=== PATIENT | female | born 2000 | race Caucasian/White ===

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

== ENCOUNTER 2021-02-05 10:48 | Emergency (ER) | payer MEDICAID ==
[2021-04-19] MEDS ORDERED: SULF1TAB48 PO (14:03)
== END 2021-02-05 11:30 | disposition left against medical advice (07) ==
LOC: ER 10:48
DX: N39.0 Urinary tract infection, site not specified (principal); Z53.21 Procedure and treatment not carried out due to patient leaving prior to being seen by health care provider

== ENCOUNTER 2022-06-23 10:39 | Emergency (ER) | payer MEDICAID ==
[~2022-06-23] VITALS: Ht 167.6 cm; Wt 60.8 kg
[2022-06-23 10:42] VITALS: BP 115/76
[2022-06-23] MEDS ORDERED: ketorolac tromethamine 15mg/ml inj. IM ONE (10:55)
[2022-06-23] MEDS ORDERED: CYCL-1 PO (11:55)
== END 2022-06-23 12:06 | disposition home or self-care (01) ==
LOC: ER 10:40
DX: S39.012A Strain of muscle, fascia and tendon of lower back, initial encounter (principal); Z88.5 Allergy status to narcotic agent; X58.XXXA Exposure to other specified factors, initial encounter; Y93.89 Activity, other specified; Y92.89 Other specified places as the place of occurrence of the external cause; Y99.8 Other external cause status
CPT/HCPCS: 72100; 96372; 99283; J1885

== ENCOUNTER 2022-09-05 21:19 | Emergency (ER) | payer MEDICAID ==
[~2022-09-05] VITALS: Ht 165.1 cm; Wt 60.7 kg
[~2022-09-05 21:19] MED LIST changes: +CYCL-1 PO
[2022-09-05 22:16] VITALS: BP 123/85; PULSE 72; TEMP 97.9; O2SAT 99
[2022-09-06] MEDS ORDERED: acetaminophen 325mg tablet PO ONE (01:15)
[2022-09-06] MEDS ORDERED: ketorolac trometh inj. 60 MG/2 ML VIAL IM ONE (01:15)
[2022-09-06 01:25] VITALS: RESP 18
== END 2022-09-06 01:28 | disposition home or self-care (01) ==
LOC: ER 21:20
DX: M54.50 Low back pain, unspecified (principal); Z88.8 Allergy status to other drugs, medicaments and biological substances; Z79.899 Other long term (current) drug therapy; W01.0XXA Fall on same level from slipping, tripping and stumbling without subsequent striking against object, initial encounter; Y93.89 Activity, other specified; Y92.89 Other specified places as the place of occurrence of the external cause; Y99.8 Other external cause status
CPT/HCPCS: 96372; 99283; J1885

== ENCOUNTER 2022-10-15 19:44 | Emergency (ER) | payer MEDICAID ==
[~2022-10-15] VITALS: Ht 167.6 cm; Wt 61.6 kg
[2022-10-15 19:53] VITALS: BP 147/89; PULSE 101; TEMP 98.6; O2SAT 100
[2022-10-15 20:22] LABS: BASOPHILS % (AUTO) 0.6 % (0-1); EOSINOPHILS # (AUTO) 0.1 X10'3 (0-0.9); HEMATOCRIT 46.9 % (35.0-45.0); HEMOGLOBIN 15.9 g/dl (12.0-16.0); LYMPHOCYTES # (AUTO) 2.5 X10'3 (1.1-4.8); LYMPHOCYTES % (AUTO) 38.9 % (21-51); MEAN CORPUSCULAR HEMOGLOBIN 30.9 PG (27.0-31.0); MEAN CORPUSCULAR HGB CONC 33.9 g/dL (33.0-36.5); MEAN CORPUSCULAR VOLUME 91.2 FL (78-98); MEAN PLATELET VOLUME 7.7 FL (7.4-10.4); MONOCYTES # (AUTO) 0.8 X10'3 (0-0.9); NEUTROPHILS # (AUTO) 3.1 X10'3 (1.8-7.7); NEUTROPHILS % (AUTO) 47.5 % (42-75); PLATELET COUNT 233 X10'3 (140-440); RED BLOOD COUNT 5.14 X10'6 (4.20-5.60); RED CELL DISTRIBUTION WIDTH 13.7 % (11.5-14.5); WHITE BLOOD COUNT 6.4 X10'3 (4.5-11.0)
[2022-10-15 20:25] LABS: URINE HCG NEGATIVE (NEG)
[2022-10-15 20:27] LABS: BILIRUBIN,URINE NEGATIVE (Neg); CLARITY,URINE SLIGHTLY CLOUDY (Clear); GLUCOSE, URINE NEGATIVE (Neg); KETONES,URINE NEGATIVE (Neg); LEUKOCYTE ESTERASE ,URINE MODERATE (Neg); NITRITES, URINE NEGATIVE (Neg); OCCULT BLOOD,URINE MODERATE (Neg); PH,URINE 5.5 (4.8-8.0); PROTEIN,URINE NEGATIVE (Neg); UROBILINOGEN,URINE 0.2 E.U/dL (0.2-1.0)
[2022-10-15 20:31] LABS: UA COLLECTION TYPE CLN CATCH MIDSTREAM
[2022-10-15 20:33] LABS: COLOR,URINE YELLOW (Yellow)
[2022-10-15 20:34] LABS: BACTERIA,URINE 1+ /HPF (Neg); SQUAMOUS EPITHELIAL CELL,UR MODERATE /LPF (FEW); WBC,URINE 20-30 /HPF (0-4)
[2022-10-15 20:35] LABS: MUCUS STRANDS FEW /LPF (Neg); TRANSITIONAL EPI CELLS,URINE FEW /HPF; WBC CLUMPS,URINE FEW /HPF (NEGATIVE)
[2022-10-15 20:36] LABS: ALANINE AMINOTRANSFERASE 11 U/L (12-78); ALBUMIN 3.9 G/DL (3.4-5.0); ALBUMIN/GLOBULIN RATIO 1.3 (1.1-1.5); ALKALINE PHOSPHATASE 62 IU/L (46-116); ANION GAP 11 (8-16); ASPARTATE AMINO TRANSFERASE 18 U/L (10-37); BILIRUBIN,TOTAL 0.6 MG/DL (0.1-1.0); BLOOD UREA NITROGEN 14 MG/DL (7-18); BUN/CREATININE RATIO 15.6 (10.0-20.0); CALCIUM 9.1 MG/DL (8.5-10.1); CHLORIDE 103 MMOL/L (99-107); GLUCOSE 92 MG/DL (70-104); LIPASE 81 U/L (73-393); POTASSIUM 3.9 MMOL/L (3.5-5.1); SODIUM 137 MMOL/L (135-145); TOTAL CARBON DIOXIDE 22.9 MMOL/L (24-32); eCRCL 93 ML/MIN; eGFR 79 ML/MIN
[2022-10-15 20:55] VITALS: RESP 16
[2022-10-15] MEDS ORDERED: CEFD300C3 PO (22:02)
[2022-10-15] MEDS ORDERED: CefTRIAXone 1000mg IM Kit (w/lidocaine diluent) IM ONE (22:05)
== END 2022-10-15 22:15 | disposition home or self-care (01) ==
LOC: ER 19:45
DX: N39.0 Urinary tract infection, site not specified (principal); Z88.8 Allergy status to other drugs, medicaments and biological substances; Z79.899 Other long term (current) drug therapy
CPT/HCPCS: 36415; 80053; 81001; 81025; 83690; 85025; 87088; 96372; 99283; J0696

== ENCOUNTER 2022-10-28 14:23 | Emergency (ER) | payer MEDICAID ==
[~2022-10-28] VITALS: Ht 167.6 cm; Wt 61.4 kg
[~2022-10-28 14:23] MED LIST changes: +CEFD300C3 PO
[2022-10-28 14:26] VITALS: BP 115/90; PULSE 116; TEMP 98.5; O2SAT 99
[2022-10-28 15:04] LABS: BASOPHILS % (AUTO) 0.2 % (0-1); EOSINOPHILS % (AUTO) 0.1 % (0-6); HEMATOCRIT 48.8 % (35.0-45.0); HEMOGLOBIN 16.8 g/dl (12.0-16.0); LYMPHOCYTES # (AUTO) 2.5 X10'3 (1.1-4.8); LYMPHOCYTES % (AUTO) 25.1 % (21-51); MEAN CORPUSCULAR HEMOGLOBIN 30.8 PG (27.0-31.0); MEAN CORPUSCULAR HGB CONC 34.5 g/dL (33.0-36.5); MEAN CORPUSCULAR VOLUME 89.2 FL (78-98); MEAN PLATELET VOLUME 8.1 FL (7.4-10.4); MONOCYTES # (AUTO) 0.9 X10'3 (0-0.9); MONOCYTES % (AUTO) 9.2 % (2-12); NEUTROPHILS # (AUTO) 6.4 X10'3 (1.8-7.7); NEUTROPHILS % (AUTO) 65.4 % (42-75); PLATELET COUNT 324 X10'3 (140-440); RED BLOOD COUNT 5.47 X10'6 (4.20-5.60); WHITE BLOOD COUNT 9.9 X10'3 (4.5-11.0)
[2022-10-28 15:16] LABS: ALANINE AMINOTRANSFERASE 22 U/L (12-78); ALBUMIN 4.6 G/DL (3.4-5.0); ALBUMIN/GLOBULIN RATIO 1.3 (1.1-1.5); ALKALINE PHOSPHATASE 61 IU/L (46-116); ANION GAP 18 (8-16); ASPARTATE AMINO TRANSFERASE 24 U/L (10-37); BILIRUBIN,TOTAL 0.8 MG/DL (0.1-1.0); BLOOD UREA NITROGEN 12 MG/DL (7-18); BUN/CREATININE RATIO 12.1 (10.0-20.0); CALCIUM 10.7 MG/DL (8.5-10.1); CHLORIDE 104 MMOL/L (99-107); CREATININE 0.99 MG/DL (0.40-0.90); GLUCOSE 99 MG/DL (70-104); POTASSIUM 3.7 MMOL/L (3.5-5.1); SODIUM 141 MMOL/L (135-145); TOTAL CARBON DIOXIDE 19.1 MMOL/L (24-32); TOTAL PROTEIN 8.2 G/DL (6.4-8.2); eCRCL 84 ML/MIN; eGFR 71 ML/MIN
[2022-10-28 16:05] VITALS: RESP 16
[2022-10-28] MEDS ORDERED: HYDR-3686 PO (16:08)
--- NOTE | 2022-10-28 16:26 | NUR ---
PT POSITIVE FOR COVID LAST WEEK. LAST SATURDAY, COVID TEST WAS NEGATIVE. ON ANTIBOTICS FOR UTI.
== END 2022-10-28 16:58 | disposition home or self-care (01) ==
LOC: ER 14:23
DX: F41.9 Anxiety disorder, unspecified (principal); J45.909 Unspecified asthma, uncomplicated; Z88.8 Allergy status to other drugs, medicaments and biological substances; Z79.899 Other long term (current) drug therapy; Z86.16 Personal history of COVID-19
CPT/HCPCS: 36415; 80053; 85025; 99283

== ENCOUNTER 2023-02-08 12:25 | Emergency (ER) | payer MEDICAID ==
[~2023-02-08] VITALS: Ht 167.6 cm; Wt 59.1 kg
[2023-02-08] MEDS ORDERED: albuterol 2.5 MG/3 ML nebule NEB ONE (13:10)
[2023-02-08 13:21] VITALS: PULSE 92; RESP 22; O2SAT 98
[2023-02-08 13:33] VITALS: PULSE 92; RESP 16; O2SAT 99
[2023-02-08] MEDS ORDERED: clopidogrel 300mg tablet ONE (13:36)
[2023-02-08] MEDS ORDERED: ALBU18HF2 INH (14:00)
[2023-02-08] MEDS ORDERED: BUDE10.2 INH (14:00)
[2023-02-08] MEDS ORDERED: PRED20TA PO (14:00)
[2023-02-08 14:20] VITALS: BP 120/69; PULSE 90; RESP 18; TEMP 98.3; O2SAT 97
== END 2023-02-08 14:23 | disposition home or self-care (01) ==
LOC: ER 12:26
DX: J45.909 Unspecified asthma, uncomplicated (principal); Z20.822 Contact with and (suspected) exposure to COVID-19; F41.9 Anxiety disorder, unspecified; F31.9 Bipolar disorder, unspecified; Z88.5 Allergy status to narcotic agent; Z79.899 Other long term (current) drug therapy
CPT/HCPCS: 36415; 71045; 87502; 87503; 87811; 94640; 94760; 99284

== ENCOUNTER 2023-02-09 10:40 | Emergency (ER) | payer MEDICAID ==
[~2023-02-09] VITALS: Ht 167.6 cm; Wt 59.1 kg
[~2023-02-09 10:40] MED LIST changes: +ALBU18HF2 INH; +BUDE10.2 INH; +PRED20TA PO
[2023-02-09 12:21] LABS: BILIRUBIN,URINE NEGATIVE (Neg); CLARITY,URINE CLOUDY (Clear); COLOR,URINE YELLOW (Yellow); GLUCOSE, URINE NEGATIVE (Neg); KETONES,URINE TRACE mg/dl (Neg); LEUKOCYTE ESTERASE ,URINE NEGATIVE (Neg); NITRITES, URINE NEGATIVE (Neg); OCCULT BLOOD,URINE MODERATE (Neg); PROTEIN,URINE TRACE mg/dl (Neg); UROBILINOGEN,URINE 0.2 E.U/dL (0.2-1.0)
[2023-02-09 12:27] LABS: UA COLLECTION TYPE CLN CATCH MIDSTREAM
[2023-02-09 12:30] LABS: BACTERIA,URINE 1+ /HPF (Neg); MUCUS STRANDS MODERATE /LPF (Neg); SQUAMOUS EPITHELIAL CELL,UR MANY /LPF (FEW); WBC,URINE 0-4 /HPF (0-4)
[2023-02-09 13:33] LABS: URINE HCG NEGATIVE (NEG)
[2023-02-09 13:58] VITALS: BP 108/74; PULSE 68; RESP 16; TEMP 98.5; O2SAT 96
[2023-02-12 14:36] LABS: CHLAMYDIA TRACHOMATIS, NAA Negative (Negative)
== END 2023-02-09 14:07 | disposition home or self-care (01) ==
LOC: ER 10:42
DX: R30.0 Dysuria (principal); F31.9 Bipolar disorder, unspecified; J45.909 Unspecified asthma, uncomplicated; Z88.5 Allergy status to narcotic agent; Z79.899 Other long term (current) drug therapy
CPT/HCPCS: 36415; 81001; 81025; 86592; 87210; 87491; 87591; 99284; Q0112

== ENCOUNTER 2023-04-19 19:21 | Emergency (ER) | payer MEDICAID, OTHER ==
[~2023-04-19] VITALS: Ht 167.6 cm; Wt 63.0 kg
[~2023-04-19 19:21] MED LIST changes: -PRED20TA PO
[2023-04-19 20:19] LABS: BILIRUBIN,URINE NEGATIVE (Neg); CLARITY,URINE CLEAR (Clear); COLOR,URINE YELLOW (Yellow); GLUCOSE, URINE NEGATIVE (Neg); KETONES,URINE NEGATIVE (Neg); LEUKOCYTE ESTERASE ,URINE NEGATIVE (Neg); NITRITES, URINE NEGATIVE (Neg); OCCULT BLOOD,URINE TRACE-INTACT (Neg); PROTEIN,URINE NEGATIVE (Neg); URINE HCG NEGATIVE (NEG); UROBILINOGEN,URINE 0.2 E.U/dL (0.2-1.0)
[2023-04-19 20:21] LABS: BASOPHILS % (AUTO) 0.3 % (0-1); EOSINOPHILS # (AUTO) 0.1 X10'3 (0-0.9); EOSINOPHILS % (AUTO) 0.7 % (0-6); HEMATOCRIT 41.2 % (35.0-45.0); HEMOGLOBIN 14.2 g/dl (12.0-16.0); LYMPHOCYTES # (AUTO) 2.3 X10'3 (1.1-4.8); LYMPHOCYTES % (AUTO) 27.4 % (21-51); MEAN CORPUSCULAR HEMOGLOBIN 30.9 PG (27.0-31.0); MEAN CORPUSCULAR HGB CONC 34.5 g/dL (33.0-36.5); MEAN CORPUSCULAR VOLUME 89.4 FL (78-98); MEAN PLATELET VOLUME 8.2 FL (7.4-10.4); MONOCYTES # (AUTO) 0.8 X10'3 (0-0.9); MONOCYTES % (AUTO) 9.7 % (2-12); NEUTROPHILS # (AUTO) 5.1 X10'3 (1.8-7.7); NEUTROPHILS % (AUTO) 61.9 % (42-75); PLATELET COUNT 239 X10'3 (140-440); RED CELL DISTRIBUTION WIDTH 12.8 % (11.5-14.5); WHITE BLOOD COUNT 8.2 X10'3 (4.5-11.0)
[2023-04-19 20:26] LABS: UA COLLECTION TYPE CLN CATCH MIDSTREAM
[2023-04-19 20:30] LABS: BACTERIA,URINE NONE SEEN /HPF (Neg); MUCUS STRANDS NONE SEEN /LPF (Neg); RBC,URINE 0-2 /HPF (0-2); SQUAMOUS EPITHELIAL CELL,UR FEW /LPF (FEW); WBC,URINE 0-4 /HPF (0-4)
[2023-04-19 20:34] LABS: ALANINE AMINOTRANSFERASE 25 U/L (12-78); ALBUMIN 4.2 G/DL (3.4-5.0); ALBUMIN/GLOBULIN RATIO 1.3 (1.1-1.5); ALKALINE PHOSPHATASE 52 IU/L (46-116); ANION GAP 11 (8-16); ASPARTATE AMINO TRANSFERASE 21 U/L (10-37); BILIRUBIN,TOTAL 0.5 MG/DL (0.1-1.0); BLOOD UREA NITROGEN 13 MG/DL (7-18); BUN/CREATININE RATIO 15.7 (10.0-20.0); CALCIUM 9.2 MG/DL (8.5-10.1); CHLORIDE 106 MMOL/L (99-107); CREATININE 0.83 MG/DL (0.40-0.90); GLUCOSE 98 MG/DL (70-104); LIPASE 77 U/L (16-77); POTASSIUM 3.8 MMOL/L (3.5-5.1); SODIUM 144 MMOL/L (135-145); TOTAL CARBON DIOXIDE 27.3 MMOL/L (24-32); TOTAL PROTEIN 7.4 G/DL (6.4-8.2); eCRCL 100 ML/MIN; eGFR 87 ML/MIN
[2023-04-19] MEDS ORDERED: FAMO20TA47 PO (22:51)
[2023-04-19] MEDS: ketorolac trometh. 30mg/ml inj. IM ONE (22:58)
[2023-04-19] MEDS: LIDOcaine Viscous 15ml cup MM STA (22:59)
[2023-04-19] MEDS: mag hydrox/Alum hydrox/simeth 30ml oral suspension PO ONE (22:59)
[2023-04-19 23:05] VITALS: BP 122/64; PULSE 80; RESP 16; TEMP 98.2; O2SAT 99
== END 2023-04-19 23:06 | disposition home or self-care (01) ==
LOC: ER 19:21
DX: K29.00 Acute gastritis without bleeding (principal); F31.9 Bipolar disorder, unspecified; J45.909 Unspecified asthma, uncomplicated; R10.9 Unspecified abdominal pain; Z88.5 Allergy status to narcotic agent; Z79.899 Other long term (current) drug therapy; Z79.2 Long term (current) use of antibiotics
CPT/HCPCS: 36415; 80053; 81001; 81025; 83690; 85025; 96372; 99283; J1885

== ENCOUNTER 2023-05-11 08:10 | Emergency (ER) | payer BC, OTHER ==
[~2023-05-11] VITALS: Ht 167.6 cm; Wt 59.6 kg
[~2023-05-11 08:10] MED LIST changes: +FAMO20TA47 PO
[2023-05-11 09:33] VITALS: BP 153/89; PULSE 101; RESP 16; TEMP 97.8; O2SAT 97
[2023-05-11] MEDS: ALPRAZolam 0.5mg tablet PO ONE (09:38)
[2023-05-12] MEDS ORDERED: LORA-269 PO (01:49)
[2023-05-12] MEDS ORDERED: PROP40TA7 PO (19:43)
== END 2023-05-11 09:44 | disposition home or self-care (01) ==
LOC: ER 08:11
DX: F41.9 Anxiety disorder, unspecified (principal); R06.02 Shortness of breath; J45.909 Unspecified asthma, uncomplicated; F31.9 Bipolar disorder, unspecified; Z88.5 Allergy status to narcotic agent; Z79.2 Long term (current) use of antibiotics; Z79.899 Other long term (current) drug therapy
CPT/HCPCS: 82948; 99283

== ENCOUNTER 2023-05-11 21:57 | Emergency (ER) | payer BC, OTHER ==
[~2023-05-11] VITALS: Ht 167.6 cm; Wt 59.6 kg
[2023-05-11 22:01] VITALS: BP 142/101; TEMP 98.4
[2023-05-11 23:10] LABS: BASOPHILS % (AUTO) 0.3 % (0-1); EOSINOPHILS % (AUTO) 0.3 % (0-6); HEMATOCRIT 41.7 % (35.0-45.0); HEMOGLOBIN 14.4 g/dl (12.0-16.0); LYMPHOCYTES # (AUTO) 2.6 X10'3 (1.1-4.8); LYMPHOCYTES % (AUTO) 21.2 % (21-51); MEAN CORPUSCULAR HEMOGLOBIN 30.6 PG (27.0-31.0); MEAN CORPUSCULAR HGB CONC 34.5 g/dL (33.0-36.5); MEAN CORPUSCULAR VOLUME 88.8 FL (78-98); MEAN PLATELET VOLUME 8.6 FL (7.4-10.4); MONOCYTES # (AUTO) 1.3 X10'3 (0-0.9); MONOCYTES % (AUTO) 10.8 % (2-12); NEUTROPHILS # (AUTO) 8.3 X10'3 (1.8-7.7); NEUTROPHILS % (AUTO) 67.4 % (42-75); PLATELET COUNT 250 X10'3 (140-440); RED CELL DISTRIBUTION WIDTH 12.5 % (11.5-14.5); WHITE BLOOD COUNT 12.3 X10'3 (4.5-11.0)
[2023-05-11 23:29] LABS: ALANINE AMINOTRANSFERASE 24 U/L (12-78); ALBUMIN 4.3 G/DL (3.4-5.0); ALBUMIN/GLOBULIN RATIO 1.2 (1.1-1.5); ALKALINE PHOSPHATASE 51 IU/L (46-116); ANION GAP 17 (8-16); ASPARTATE AMINO TRANSFERASE 23 U/L (10-37); BLOOD UREA NITROGEN 16 MG/DL (7-18); CALCIUM 9.4 MG/DL (8.5-10.1); CHLORIDE 106 MMOL/L (99-107); CREATININE 0.94 MG/DL (0.40-0.90); GLUCOSE 95 MG/DL (70-104); POTASSIUM 3.5 MMOL/L (3.5-5.1); SODIUM 141 MMOL/L (135-145); TOTAL CARBON DIOXIDE 18.4 MMOL/L (24-32); TOTAL PROTEIN 7.8 G/DL (6.4-8.2); eCRCL 88 ML/MIN; eGFR 74 ML/MIN
[2023-05-11] MEDS: normal saline 1000ml 1,000 ML IV ONE (23:29)
[2023-05-11] MEDS: LORazepam 2 mg/ml vial IV ONE (23:29)
[2023-05-11 23:38] LABS: FREE T4 (FREE THYROXINE) 1.59 NG/DL (0.73-1.40); THYROID STIMULATING HORMONE 1.37 ulU/ml (0.34-4.50)
[2023-05-11 23:41] LABS: BETA HCG,QUANTITATIVE < 1.0 mIU/ml
[2023-05-12 01:05] LABS: BILIRUBIN,URINE NEGATIVE (Neg); CLARITY,URINE CLEAR (Clear); COLOR,URINE STRAW (Yellow); GLUCOSE, URINE NEGATIVE (Neg); KETONES,URINE >=80 mg/dl (Neg); LEUKOCYTE ESTERASE ,URINE NEGATIVE (Neg); NITRITES, URINE NEGATIVE (Neg); OCCULT BLOOD,URINE TRACE-INTACT (Neg); PROTEIN,URINE NEGATIVE (Neg); UROBILINOGEN,URINE 0.2 E.U/dL (0.2-1.0)
[2023-05-12] MEDS: LORazepam 2 mg/ml vial IV ONE (01:11)
[2023-05-12 01:19] LABS: UA COLLECTION TYPE NON-SPECIFIED
[2023-05-12 01:20] LABS: RBC,URINE 0-2 /HPF (0-2); SQUAMOUS EPITHELIAL CELL,UR MANY /LPF (FEW); URINE AMPHETAMINE SCREEN NEGATIVE (Neg); URINE BARBITUATE SCREEN NEGATIVE (Neg); URINE BENZODIAZEPINES SCREEN POSITIVE (Neg); URINE CANNABINOID SCREEN POSITIVE (Neg); URINE COCAINE SCREEN NEGATIVE (Neg); URINE METHADONE SCREEN NEGATIVE (Neg); URINE OPIATE SCREEN NEGATIVE (Neg); URINE PHENCYCLIDINE SCREEN NEGATIVE (Neg); WBC,URINE 0-4 /HPF (0-4)
[2023-05-12 01:21] LABS: BACTERIA,URINE 2+ /HPF (Neg)
[2023-05-12] MEDS ORDERED: LORA-269 PO (01:49)
[2023-05-12 01:57] VITALS: PULSE 78; RESP 16; O2SAT 97
[2023-05-12] MEDS ORDERED: PROP40TA7 PO (19:43)
[2023-05-13] MEDS ORDERED: POLY119P2 PO (22:01)
[2023-05-13] MEDS ORDERED: DOCU-148 PO (22:01)
[2023-05-13] MEDS ORDERED: METO10TA3 PO (22:01)
== END 2023-05-12 01:58 | disposition home or self-care (01) ==
LOC: ER 21:58
DX: F41.9 Anxiety disorder, unspecified (principal); Z20.822 Contact with and (suspected) exposure to COVID-19; E86.0 Dehydration; J45.909 Unspecified asthma, uncomplicated; F31.9 Bipolar disorder, unspecified; F12.90 Cannabis use, unspecified, uncomplicated; Z88.5 Allergy status to narcotic agent; Z79.899 Other long term (current) drug therapy; Z79.2 Long term (current) use of antibiotics
CPT/HCPCS: 36415; 80053; 80305; 81001; 84439; 84443; 84702; 85025; 87502; 87503; 87811; 93005; 96361; 96374; 96376; 99284; J2060; J7030

== ENCOUNTER 2023-05-12 15:32 | Emergency (ER) | payer BC ==
[~2023-05-12] VITALS: Ht 167.6 cm; Wt 59.5 kg
[~2023-05-12 15:32] MED LIST changes: +LORA-269 PO
[2023-05-12 15:39] VITALS: TEMP 99.2
[2023-05-12] MEDS ORDERED: propranolol 40mg tablet PO ONE (17:50)
[2023-05-12 18:17] LABS: BASOPHILS % (AUTO) 0.3 % (0-1); EOSINOPHILS % (AUTO) 0 % (0-6); HEMATOCRIT 40.1 % (35.0-45.0); LYMPHOCYTES # (AUTO) 1.9 X10'3 (1.1-4.8); MEAN CORPUSCULAR HEMOGLOBIN 31.1 PG (27.0-31.0); MEAN CORPUSCULAR HGB CONC 34.9 g/dL (33.0-36.5); MEAN CORPUSCULAR VOLUME 89.2 FL (78-98); MEAN PLATELET VOLUME 8.3 FL (7.4-10.4); MONOCYTES # (AUTO) 0.8 X10'3 (0-0.9); MONOCYTES % (AUTO) 8.4 % (2-12); NEUTROPHILS # (AUTO) 7.3 X10'3 (1.8-7.7); NEUTROPHILS % (AUTO) 72.3 % (42-75); PLATELET COUNT 242 X10'3 (140-440); RED BLOOD COUNT 4.49 X10'6 (4.20-5.60); RED CELL DISTRIBUTION WIDTH 12.6 % (11.5-14.5); WHITE BLOOD COUNT 10.1 X10'3 (4.5-11.0)
[2023-05-12] MEDS: propranolol 10mg tablet PO ONE (18:27)
[2023-05-12 19:05] LABS: ALANINE AMINOTRANSFERASE 27 U/L (12-78); ALBUMIN/GLOBULIN RATIO 1.2 (1.1-1.5); ALKALINE PHOSPHATASE 46 IU/L (46-116); ANION GAP 12 (8-16); ASPARTATE AMINO TRANSFERASE 19 U/L (10-37); BILIRUBIN,TOTAL 0.9 MG/DL (0.1-1.0); BLOOD UREA NITROGEN 9 MG/DL (7-18); BUN/CREATININE RATIO 10.8 (10.0-20.0); CALCIUM 8.8 MG/DL (8.5-10.1); CHLORIDE 106 MMOL/L (99-107); CREATININE 0.83 MG/DL (0.40-0.90); GLUCOSE 86 MG/DL (70-104); POTASSIUM 3.8 MMOL/L (3.5-5.1); SODIUM 139 MMOL/L (135-145); TOTAL CARBON DIOXIDE 21.1 MMOL/L (24-32); TOTAL PROTEIN 7.4 G/DL (6.4-8.2); eCRCL 100 ML/MIN; eGFR 86 ML/MIN
[2023-05-12 19:14] LABS: FREE T4 (FREE THYROXINE) 1.29 NG/DL (0.73-1.40); THYROID STIMULATING HORMONE 1.05 ulU/ml (0.34-4.50)
[2023-05-12] MEDS ORDERED: PROP40TA7 PO (19:43)
[2023-05-12 19:55] VITALS: BP 124/88; PULSE 87; RESP 16; O2SAT 98
[2023-05-13] MEDS ORDERED: DOCU-148 PO (22:01)
[2023-05-13] MEDS ORDERED: POLY119P2 PO (22:01)
[2023-05-13] MEDS ORDERED: METO10TA3 PO (22:01)
== END 2023-05-12 19:56 | disposition home or self-care (01) ==
LOC: ER 15:32
DX: E05.90 Thyrotoxicosis, unspecified without thyrotoxic crisis or storm (principal); J45.909 Unspecified asthma, uncomplicated; F41.9 Anxiety disorder, unspecified; F12.90 Cannabis use, unspecified, uncomplicated; Z88.8 Allergy status to other drugs, medicaments and biological substances; Z79.899 Other long term (current) drug therapy
CPT/HCPCS: 36415; 80053; 82948; 84439; 84443; 84480; 85025; 96361; 96374; 96375; 99285; G0378

== ENCOUNTER 2023-05-13 20:41 | Emergency (ER) | payer BC ==
[~2023-05-13] VITALS: Ht 167.6 cm; Wt 58.4 kg
[~2023-05-13 20:41] MED LIST changes: +PROP40TA7 PO
[2023-05-13 20:43] VITALS: BP 114/80; PULSE 96; RESP 18; TEMP 98.9; O2SAT 96
[2023-05-13] MEDS ORDERED: METO10TA3 PO (22:01)
[2023-05-13] MEDS ORDERED: DOCU-148 PO (22:01)
[2023-05-13] MEDS ORDERED: POLY119P2 PO (22:01)
== END 2023-05-13 22:17 | disposition home or self-care (01) ==
LOC: ER 20:42
DX: K59.00 Constipation, unspecified (principal); R11.10 Vomiting, unspecified; J45.909 Unspecified asthma, uncomplicated; F41.9 Anxiety disorder, unspecified; F12.90 Cannabis use, unspecified, uncomplicated; Z88.5 Allergy status to narcotic agent; Z79.899 Other long term (current) drug therapy
CPT/HCPCS: 74018; 99283

== ENCOUNTER 2023-05-24 18:44 | Emergency (ER) | payer BC ==
[~2023-05-24] VITALS: Ht 167.6 cm; Wt 59.5 kg
[~2023-05-24 18:44] MED LIST changes: +DOCU-148 PO; +METO10TA3 PO; +POLY119P2 PO
[2023-05-24 19:09] VITALS: TEMP 98.4
[2023-05-24 20:57] LABS: BILIRUBIN,URINE NEGATIVE (Neg); CLARITY,URINE SLIGHTLY CLOUDY (Clear); COLOR,URINE STRAW (Yellow); GLUCOSE, URINE NEGATIVE (Neg); KETONES,URINE TRACE mg/dl (Neg); LEUKOCYTE ESTERASE ,URINE TRACE (Neg); NITRITES, URINE NEGATIVE (Neg); OCCULT BLOOD,URINE TRACE-INTACT (Neg); PROTEIN,URINE NEGATIVE (Neg); UROBILINOGEN,URINE 0.2 E.U/dL (0.2-1.0)
[2023-05-24 21:07] LABS: UA COLLECTION TYPE CLN CATCH MIDSTREAM
[2023-05-24 21:10] LABS: BACTERIA,URINE FEW /HPF (Neg); MUCUS STRANDS MODERATE /LPF (Neg); SQUAMOUS EPITHELIAL CELL,UR MANY /LPF (FEW); WBC,URINE 0-4 /HPF (0-4)
[2023-05-24 21:23] LABS: BASOPHILS # (AUTO) 0.1 X10'3 (0-0.2); BASOPHILS % (AUTO) 1.1 % (0-1); EOSINOPHILS # (AUTO) 0.1 X10'3 (0-0.9); EOSINOPHILS % (AUTO) 0.6 % (0-6); HEMATOCRIT 41.2 % (35.0-45.0); HEMOGLOBIN 14.7 g/dl (12.0-16.0); LYMPHOCYTES # (AUTO) 2.7 X10'3 (1.1-4.8); LYMPHOCYTES % (AUTO) 25.2 % (21-51); MEAN CORPUSCULAR HEMOGLOBIN 31.5 PG (27.0-31.0); MEAN CORPUSCULAR HGB CONC 35.6 g/dL (33.0-36.5); MEAN CORPUSCULAR VOLUME 88.5 FL (78-98); MEAN PLATELET VOLUME 8.3 FL (7.4-10.4); MONOCYTES # (AUTO) 1.1 X10'3 (0-0.9); NEUTROPHILS # (AUTO) 6.7 X10'3 (1.8-7.7); NEUTROPHILS % (AUTO) 63.1 % (42-75); PLATELET COUNT 273 X10'3 (140-440); RED BLOOD COUNT 4.65 X10'6 (4.20-5.60); RED CELL DISTRIBUTION WIDTH 12.4 % (11.5-14.5); WHITE BLOOD COUNT 10.7 X10'3 (4.5-11.0)
[2023-05-24 21:37] LABS: URINE AMPHETAMINE SCREEN NEGATIVE (Neg); URINE BARBITUATE SCREEN NEGATIVE (Neg); URINE BENZODIAZEPINES SCREEN NEGATIVE (Neg); URINE CANNABINOID SCREEN POSITIVE (Neg); URINE COCAINE SCREEN NEGATIVE (Neg); URINE METHADONE SCREEN NEGATIVE (Neg); URINE OPIATE SCREEN NEGATIVE (Neg); URINE PHENCYCLIDINE SCREEN NEGATIVE (Neg)
[2023-05-24 21:51] VITALS: BP 115/75; PULSE 84
[2023-05-24 21:57] LABS: ALANINE AMINOTRANSFERASE 30 U/L (12-78); ALBUMIN/GLOBULIN RATIO 1.1 (1.1-1.5); ALKALINE PHOSPHATASE 41 IU/L (46-116); ANION GAP 14 (8-16); ASPARTATE AMINO TRANSFERASE 22 U/L (10-37); BILIRUBIN,TOTAL 0.8 MG/DL (0.1-1.0); BLOOD UREA NITROGEN 10 MG/DL (7-18); BUN/CREATININE RATIO 11.4 (10.0-20.0); CALCIUM 9.3 MG/DL (8.5-10.1); CHLORIDE 107 MMOL/L (99-107); CREATININE 0.88 MG/DL (0.40-0.90); GLUCOSE 90 MG/DL (70-104); POTASSIUM 3.8 MMOL/L (3.5-5.1); SODIUM 143 MMOL/L (135-145); TOTAL CARBON DIOXIDE 22.4 MMOL/L (24-32); TOTAL PROTEIN 7.6 G/DL (6.4-8.2); eCRCL 94 ML/MIN; eGFR 80 ML/MIN
[2023-05-24 22:08] LABS: LIPASE 61 U/L (16-77)
[2023-05-24 22:12] LABS: BETA HCG,QUANTITATIVE < 1.0 mIU/ml
[2023-05-24] MEDS ORDERED: iohexol 300mg/ml 100ml inj. ONE (22:20)
[2023-05-25] MEDS ORDERED: METO5TAB98 PO (00:29)
[2023-05-25] MEDS: haloperidol lactate 5mg/ml inj IM ONE (00:43)
[2023-05-25 00:54] VITALS: RESP 16; O2SAT 98
== END 2023-05-25 00:55 | disposition home or self-care (01) ==
LOC: ER 18:44
DX: R10.13 Epigastric pain (principal); R11.2 Nausea with vomiting, unspecified; K59.00 Constipation, unspecified; J45.909 Unspecified asthma, uncomplicated; F41.9 Anxiety disorder, unspecified; F31.9 Bipolar disorder, unspecified; F12.90 Cannabis use, unspecified, uncomplicated; Z88.5 Allergy status to narcotic agent; Z79.899 Other long term (current) drug therapy; Z79.2 Long term (current) use of antibiotics
CPT/HCPCS: 36415; 74177; 80053; 80305; 81001; 83690; 84702; 85025; 96372; 99285; J1630; J3490; Q9967

== ENCOUNTER 2023-06-06 21:56 | Emergency (ER) | payer BC ==
[~2023-06-06] VITALS: Ht 167.6 cm; Wt 56.8 kg
[~2023-06-06 21:56] MED LIST changes: +METO5TAB98 PO
[2023-06-06 22:08] VITALS: BP 107/81; PULSE 90; RESP 14; TEMP 97.8; O2SAT 98
== END 2023-06-07 01:11 | disposition left against medical advice (07) ==
LOC: ER 21:57
DX: F19.10 Other psychoactive substance abuse, uncomplicated (principal); J45.909 Unspecified asthma, uncomplicated; F12.90 Cannabis use, unspecified, uncomplicated; Z88.5 Allergy status to narcotic agent; Z79.899 Other long term (current) drug therapy; Z79.2 Long term (current) use of antibiotics
CPT/HCPCS: 99281

== ENCOUNTER 2023-10-28 08:08 | Emergency (ER) | payer BC, MEDICAID ==
[~2023-10-28] VITALS: Ht 167.6 cm; Wt 62.6 kg
[~2023-10-28 08:08] MED LIST changes: -METO10TA3 PO; -METO5TAB98 PO
[2023-10-28 08:47] LABS: BASOPHILS % (AUTO) 0.1 % (0-1); EOSINOPHILS # (AUTO) 0.1 X10'3 (0-0.9); EOSINOPHILS % (AUTO) 0.5 % (0-6); HEMATOCRIT 46.2 % (35.0-45.0); HEMOGLOBIN 15.6 g/dl (12.0-16.0); LYMPHOCYTES # (AUTO) 0.6 X10'3 (1.1-4.8); LYMPHOCYTES % (AUTO) 5.2 % (21-51); MEAN CORPUSCULAR HEMOGLOBIN 29.8 PG (27.0-31.0); MEAN CORPUSCULAR HGB CONC 33.6 g/dL (33.0-36.5); MEAN CORPUSCULAR VOLUME 88.4 FL (78-98); MEAN PLATELET VOLUME 8.6 FL (7.4-10.4); MONOCYTES # (AUTO) 0.7 X10'3 (0-0.9); MONOCYTES % (AUTO) 6.1 % (2-12); NEUTROPHILS # (AUTO) 10.1 X10'3 (1.8-7.7); NEUTROPHILS % (AUTO) 88.1 % (42-75); PLATELET COUNT 215 X10'3 (140-440); RED BLOOD COUNT 5.23 X10'6 (4.20-5.60); WHITE BLOOD COUNT 11.5 X10'3 (4.5-11.0)
[2023-10-28 08:51] LABS: URINE HCG NEGATIVE (NEG)
[2023-10-28 08:53] LABS: BILIRUBIN,URINE SMALL (Neg); CLARITY,URINE CLEAR (Clear); COLOR,URINE YELLOW (Yellow); GLUCOSE, URINE NEGATIVE (Neg); KETONES,URINE >=80 mg/dl (Neg); LEUKOCYTE ESTERASE ,URINE TRACE (Neg); NITRITES, URINE NEGATIVE (Neg); OCCULT BLOOD,URINE MODERATE (Neg); PROTEIN,URINE TRACE mg/dl (Neg); UROBILINOGEN,URINE 0.2 E.U/dL (0.2-1.0)
[2023-10-28] MEDS: ondansetron/PF 4mg/2ml inj IV ONE (08:53)
[2023-10-28] MEDS: normal saline 1000ml 1,000 ML IV ONE (08:53)
[2023-10-28 08:57] LABS: UA COLLECTION TYPE CLN CATCH MIDSTREAM
[2023-10-28 09:00] LABS: ALANINE AMINOTRANSFERASE 38 U/L (12-78); ALBUMIN 4.3 G/DL (3.4-5.0); ALBUMIN/GLOBULIN RATIO 1.3 (1.1-1.5); ALKALINE PHOSPHATASE 56 IU/L (46-116); ANION GAP 12 (8-16); ASPARTATE AMINO TRANSFERASE 28 U/L (10-37); BILIRUBIN,TOTAL 1.5 MG/DL (0.1-1.0); BLOOD UREA NITROGEN 20 MG/DL (7-18); BUN/CREATININE RATIO 25.3 (10.0-20.0); CALCIUM 9.3 MG/DL (8.5-10.1); CHLORIDE 106 MMOL/L (99-107); CREATININE 0.79 MG/DL (0.40-0.90); GLUCOSE 102 MG/DL (70-104); LIPASE 33 U/L (16-77); POTASSIUM 3.9 MMOL/L (3.5-5.1); SODIUM 140 MMOL/L (135-145); TOTAL CARBON DIOXIDE 21.8 MMOL/L (24-32); TOTAL PROTEIN 7.6 G/DL (6.4-8.2); eCRCL 105 ML/MIN; eGFR > 90 ML/MIN
[2023-10-28 09:17] LABS: WBC,URINE 0-4 /HPF (0-4)
[2023-10-28 09:18] LABS: BACTERIA,URINE 1+ /HPF (Neg); MUCUS STRANDS FEW /LPF (Neg); RBC,URINE 0-2 /HPF (0-2); SQUAMOUS EPITHELIAL CELL,UR MANY /LPF (FEW)
[2023-10-28 10:03] VITALS: BP 123/66; PULSE 68; RESP 15; TEMP 97.6; O2SAT 4
== END 2023-10-28 10:05 | disposition home or self-care (01) ==
LOC: ER 08:08
DX: A08.4 Viral intestinal infection, unspecified (principal); F41.9 Anxiety disorder, unspecified; F31.9 Bipolar disorder, unspecified; F12.90 Cannabis use, unspecified, uncomplicated; Z88.5 Allergy status to narcotic agent; Z79.899 Other long term (current) drug therapy; Z87.891 Personal history of nicotine dependence
CPT/HCPCS: 36415; 80053; 81001; 81025; 83690; 85025; 96361; 96374; 99283; J2405; J7030

== ENCOUNTER 2023-11-15 18:51 | Emergency (ER) | payer MEDICAID ==
[~2023-11-15] VITALS: Ht 167.6 cm; Wt 63.2 kg
[2023-11-15 18:53] VITALS: BP 101/61; PULSE 82; RESP 16; O2SAT 97
[2023-11-15] MEDS ORDERED: PHEN-786 PO (19:09)
[2023-11-15] MEDS ORDERED: CEFP100T7 PO (19:09)
[2023-11-15] MEDS ORDERED: CefTRIAXone 250MG IM Kit w/LIDOcaine IM ONE (19:10)
[2023-11-15] MEDS: CefTRIAXone 1000mg IM Kit (w/lidocaine diluent) IM ONE (19:37)
[2023-11-15 19:43] VITALS: TEMP 98.1
== END 2023-11-15 19:46 | disposition home or self-care (01) ==
LOC: ER 18:51
DX: N10 Acute pyelonephritis (principal); N39.0 Urinary tract infection, site not specified; J45.909 Unspecified asthma, uncomplicated; F31.9 Bipolar disorder, unspecified; Z88.1 Allergy status to other antibiotic agents; Z88.5 Allergy status to narcotic agent
CPT/HCPCS: 96372; 99283; J0696

== ENCOUNTER 2023-12-20 22:41 | Emergency (ER) | payer MEDICAID ==
[~2023-12-20] VITALS: Ht 167.6 cm; Wt 60.0 kg
[~2023-12-20 22:41] MED LIST changes: +CEFP100T7 PO; +PHEN-786 PO
[2023-12-20 22:47] VITALS: BP 132/88; TEMP 98.3
[2023-12-20 23:43] VITALS: PULSE 110; RESP 16; O2SAT 99
== END 2023-12-21 01:29 | disposition left against medical advice (07) ==
LOC: ER 22:42
DX: F41.9 Anxiety disorder, unspecified (principal); J45.909 Unspecified asthma, uncomplicated; F31.9 Bipolar disorder, unspecified; F12.90 Cannabis use, unspecified, uncomplicated; Z88.5 Allergy status to narcotic agent; Z79.899 Other long term (current) drug therapy
CPT/HCPCS: 99281

== ENCOUNTER 2023-12-23 16:00 | Emergency (ER) | payer MEDICAID ==
[~2023-12-23] VITALS: Ht 167.6 cm; Wt 59.5 kg
[2023-12-23 16:05] VITALS: BP 149/88; PULSE 124; RESP 20; TEMP 98.2; O2SAT 96
[2023-12-23 16:45] LABS: EOSINOPHILS % (AUTO) 0 % (0-6); HEMATOCRIT 45.6 % (35.0-45.0); LYMPHOCYTES # (AUTO) 1.9 X10'3 (1.1-4.8); MONOCYTES # (AUTO) 0.7 X10'3 (0-0.9); NEUTROPHILS # (AUTO) 7.5 X10'3 (1.8-7.7); RED BLOOD COUNT 5.26 X10'6 (4.20-5.60); RED CELL DISTRIBUTION WIDTH 12.5 % (11.5-14.5)
[2023-12-23 16:48] LABS: BASOPHILS % (AUTO) 0.3 % (0-1); HEMOGLOBIN 15.6 g/dl (12.0-16.0); LYMPHOCYTES % (AUTO) 18.3 % (21-51); MEAN CORPUSCULAR HEMOGLOBIN 29.6 PG (27.0-31.0); MEAN CORPUSCULAR HGB CONC 34.2 g/dL (33.0-36.5); MEAN CORPUSCULAR VOLUME 86.6 FL (78-98); MEAN PLATELET VOLUME 8.4 FL (7.4-10.4); MONOCYTES % (AUTO) 7.4 % (2-12); PLATELET COUNT 268 X10'3 (140-440); WHITE BLOOD COUNT 10.1 X10'3 (4.5-11.0)
[2023-12-23 16:59] LABS: ALANINE AMINOTRANSFERASE 19 U/L (12-78); ALBUMIN/GLOBULIN RATIO 1.4 (1.1-1.5); ALKALINE PHOSPHATASE 53 IU/L (46-116); ANION GAP 11 (8-16); ASPARTATE AMINO TRANSFERASE 17 U/L (10-37); BILIRUBIN,TOTAL 1.3 MG/DL (0.1-1.0); BLOOD UREA NITROGEN 11 MG/DL (7-18); BUN/CREATININE RATIO 10.7 (10.0-20.0); CALCIUM 10.1 MG/DL (8.5-10.1); CHLORIDE 106 MMOL/L (99-107); CREATININE 1.03 MG/DL (0.40-0.90); GLUCOSE 106 MG/DL (70-104); SODIUM 143 MMOL/L (135-145); TOTAL PROTEIN 8.6 G/DL (6.4-8.2); eCRCL 80 ML/MIN; eGFR 67 ML/MIN
[2023-12-23 17:06] LABS: PRO BRAIN NATRIURETIC PEPTIDE < 30 PG/ML (0-125)
[2023-12-24] MEDS ORDERED: NAPR-996 PO (01:37)
[2023-12-24] MEDS ORDERED: ONDA-243 PO (01:37)
[2023-12-24] MEDS ORDERED: LORA-269 PO (01:37)
[2023-12-24] MEDS ORDERED: BUDE10.26 (01:40)
[2023-12-24] MEDS ORDERED: ALB0.5UD NEB (02:06)
== END 2023-12-23 20:40 | disposition left against medical advice (07) ==
LOC: ER 16:00
DX: R07.89 Other chest pain (principal); M79.602 Pain in left arm; Z53.21 Procedure and treatment not carried out due to patient leaving prior to being seen by health care provider
CPT/HCPCS: 36415; 71045; 80053; 83880; 84484; 85025; 93005

== ENCOUNTER 2023-12-23 23:31 | Emergency (ER) | payer MEDICAID ==
[~2023-12-23] VITALS: Ht 167.6 cm; Wt 59.5 kg
[2023-12-24 00:40] LABS: BASOPHILS % (AUTO) 0.3 % (0-1); EOSINOPHILS % (AUTO) 0.1 % (0-6); HEMOGLOBIN 14.8 g/dl (12.0-16.0); LYMPHOCYTES # (AUTO) 1.8 X10'3 (1.1-4.8); LYMPHOCYTES % (AUTO) 15.5 % (21-51); MEAN CORPUSCULAR HEMOGLOBIN 29.8 PG (27.0-31.0); MEAN CORPUSCULAR HGB CONC 34.4 g/dL (33.0-36.5); MEAN CORPUSCULAR VOLUME 86.8 FL (78-98); MEAN PLATELET VOLUME 8.3 FL (7.4-10.4); NEUTROPHILS # (AUTO) 8.6 X10'3 (1.8-7.7); NEUTROPHILS % (AUTO) 75.1 % (42-75); PLATELET COUNT 252 X10'3 (140-440); RED BLOOD COUNT 4.95 X10'6 (4.20-5.60); RED CELL DISTRIBUTION WIDTH 12.6 % (11.5-14.5); WHITE BLOOD COUNT 11.5 X10'3 (4.5-11.0)
[2023-12-24 00:40] LABS: BILIRUBIN,URINE SMALL (Neg); CLARITY,URINE CLEAR (Clear); COLOR,URINE YELLOW (Yellow); GLUCOSE, URINE NEGATIVE (Neg); KETONES,URINE 15 mg/dl (Neg); LEUKOCYTE ESTERASE ,URINE SMALL (Neg); NITRITES, URINE NEGATIVE (Neg); OCCULT BLOOD,URINE SMALL (Neg); PROTEIN,URINE NEGATIVE (Neg); UROBILINOGEN,URINE 0.2 E.U/dL (0.2-1.0)
[2023-12-24 00:42] LABS: URINE HCG NEGATIVE (NEG)
[2023-12-24 00:43] LABS: UA COLLECTION TYPE CLN CATCH MIDSTREAM
[2023-12-24 00:45] LABS: BACTERIA,URINE 3+ /HPF (Neg); SQUAMOUS EPITHELIAL CELL,UR MANY /LPF (FEW)
[2023-12-24 00:46] LABS: RBC,URINE 0-2 /HPF (0-2)
[2023-12-24 00:56] LABS: ALANINE AMINOTRANSFERASE 20 U/L (12-78); ALBUMIN 4.7 G/DL (3.4-5.0); ALBUMIN/GLOBULIN RATIO 1.4 (1.1-1.5); ALKALINE PHOSPHATASE 49 IU/L (46-116); ANION GAP 12 (8-16); ASPARTATE AMINO TRANSFERASE 18 U/L (10-37); BILIRUBIN,TOTAL 1.5 MG/DL (0.1-1.0); BLOOD UREA NITROGEN 10 MG/DL (7-18); BUN/CREATININE RATIO 9.9 (10.0-20.0); CALCIUM 9.6 MG/DL (8.5-10.1); CHLORIDE 105 MMOL/L (99-107); CREATININE 1.01 MG/DL (0.40-0.90); GLUCOSE 109 MG/DL (70-104); SODIUM 142 MMOL/L (135-145); TOTAL CARBON DIOXIDE 24.7 MMOL/L (24-32); eCRCL 82 ML/MIN; eGFR 69 ML/MIN
[2023-12-24 00:58] LABS: URINE AMPHETAMINE SCREEN NEGATIVE (Neg); URINE BARBITUATE SCREEN NEGATIVE (Neg); URINE BENZODIAZEPINES SCREEN NEGATIVE (Neg); URINE CANNABINOID SCREEN POSITIVE (Neg); URINE COCAINE SCREEN NEGATIVE (Neg); URINE METHADONE SCREEN NEGATIVE (Neg); URINE OPIATE SCREEN NEGATIVE (Neg); URINE PHENCYCLIDINE SCREEN NEGATIVE (Neg)
[2023-12-24 01:04] LABS: ETHANOL < 10 MG/DL (<10); THYROID STIMULATING HORMONE 4.26 ulU/ml (0.34-4.50)
[2023-12-24] MEDS ORDERED: LORA-269 PO (01:37)
[2023-12-24] MEDS ORDERED: ONDA-243 PO (01:37)
[2023-12-24] MEDS ORDERED: NAPR-996 PO (01:37)
[2023-12-24] MEDS ORDERED: BUDE10.26 (01:40)
[2023-12-24] MEDS: LORazepam 1 MG tablet PO STA (01:55)
[2023-12-24] MEDS: diphenhydrAMINE 25mg capsule PO STA (01:55)
[2023-12-24] MEDS ORDERED: ALB0.5UD NEB (02:06)
[2023-12-24 03:59] VITALS: BP 116/83; PULSE 99; RESP 22; TEMP 98; O2SAT 96
== END 2023-12-24 04:05 | disposition home or self-care (01) ==
LOC: ER 23:32
DX: F32.89 Other specified depressive episodes (principal); J45.909 Unspecified asthma, uncomplicated; F41.9 Anxiety disorder, unspecified; F12.90 Cannabis use, unspecified, uncomplicated; Z88.5 Allergy status to narcotic agent; Z79.52 Long term (current) use of systemic steroids; Z79.899 Other long term (current) drug therapy; Z20.822 Contact with and (suspected) exposure to COVID-19
CPT/HCPCS: 36415; 80053; 80305; 80320; 81001; 81025; 84443; 84484; 85025; 87811; 93005; 99284; Q0163

== ENCOUNTER 2024-01-13 17:44 | Emergency (ER) | payer MEDICAID ==
[~2024-01-13] VITALS: Ht 167.6 cm; Wt 57.0 kg
[~2024-01-13 17:44] MED LIST changes: -CEFD300C3 PO; -CEFP100T7 PO; -DOCU-148 PO; -FAMO20TA47 PO; -NITR100C6 PO; -PHEN-786 PO; -POLY119P2 PO; -PROP40TA7 PO
[2024-01-13 18:32] LABS: BASOPHILS % (AUTO) 0.3 % (0-1); EOSINOPHILS % (AUTO) 0.1 % (0-6); HEMATOCRIT 43.2 % (35.0-45.0); HEMOGLOBIN 14.8 g/dl (12.0-16.0); LYMPHOCYTES # (AUTO) 1.9 X10'3 (1.1-4.8); LYMPHOCYTES % (AUTO) 24.3 % (21-51); MEAN CORPUSCULAR HGB CONC 34.4 g/dL (33.0-36.5); MEAN CORPUSCULAR VOLUME 87.2 FL (78-98); MEAN PLATELET VOLUME 8.3 FL (7.4-10.4); MONOCYTES # (AUTO) 0.7 X10'3 (0-0.9); MONOCYTES % (AUTO) 9.2 % (2-12); NEUTROPHILS # (AUTO) 5.3 X10'3 (1.8-7.7); NEUTROPHILS % (AUTO) 66.1 % (42-75); PLATELET COUNT 275 X10'3 (140-440); RED BLOOD COUNT 4.95 X10'6 (4.20-5.60); RED CELL DISTRIBUTION WIDTH 12.3 % (11.5-14.5)
[2024-01-13 18:50] LABS: ALANINE AMINOTRANSFERASE 14 U/L (12-78); ALBUMIN/GLOBULIN RATIO 1.5 (1.1-1.5); ALKALINE PHOSPHATASE 54 IU/L (46-116); AMYLASE 56 U/L (25-115); ANION GAP 11 (8-16); ASPARTATE AMINO TRANSFERASE 18 U/L (10-37); BILIRUBIN,TOTAL 1.1 MG/DL (0.1-1.0); BLOOD UREA NITROGEN 11 MG/DL (7-18); BUN/CREATININE RATIO 10.9 (10.0-20.0); CALCIUM 9.3 MG/DL (8.5-10.1); CHLORIDE 105 MMOL/L (99-107); CREATININE 1.01 MG/DL (0.40-0.90); GLUCOSE 98 MG/DL (70-104); LIPASE 39 U/L (16-77); POTASSIUM 3.8 MMOL/L (3.5-5.1); SODIUM 139 MMOL/L (135-145); TOTAL CARBON DIOXIDE 23.4 MMOL/L (24-32); TOTAL PROTEIN 8.3 G/DL (6.4-8.2); eCRCL 79 ML/MIN; eGFR 69 ML/MIN
[2024-01-13 19:26] LABS: URINE HCG NEGATIVE (NEG)
[2024-01-13 19:27] LABS: BILIRUBIN,URINE NEGATIVE (Neg); CLARITY,URINE CLEAR (Clear); COLOR,URINE YELLOW (Yellow); GLUCOSE, URINE NEGATIVE (Neg); KETONES,URINE >=80 mg/dl (Neg); LEUKOCYTE ESTERASE ,URINE NEGATIVE (Neg); NITRITES, URINE NEGATIVE (Neg); OCCULT BLOOD,URINE TRACE-INTACT (Neg); PH,URINE 8.5 (4.8-8.0); PROTEIN,URINE NEGATIVE (Neg)
[2024-01-13 19:28] LABS: UA COLLECTION TYPE CLN CATCH MIDSTREAM
[2024-01-13] MEDS: mag hydrox/Alum hydrox/simeth 30ml oral suspension PO ONE (19:31)
[2024-01-13] MEDS: LIDOcaine 2% Viscous 15ml cup MM PRN (19:31)
[2024-01-13 19:34] LABS: BACTERIA,URINE 1+ /HPF (Neg); RBC,URINE 0-2 /HPF (0-2); SQUAMOUS EPITHELIAL CELL,UR FEW /LPF (FEW); WBC,URINE 0-4 /HPF (0-4)
[2024-01-13] MEDS ORDERED: DICY20TA17 PO (22:00)
[2024-01-13] MEDS ORDERED: OMEP40CA21 PO (22:00)
[2024-01-13] MEDS ORDERED: ONDA-245 PO (22:00)
[2024-01-13 22:07] VITALS: BP 124/70; PULSE 74; RESP 16; TEMP 98.5; O2SAT 98
== END 2024-01-13 22:09 | disposition home or self-care (01) ==
LOC: ER 17:44
DX: R10.11 Right upper quadrant pain (principal); R10.13 Epigastric pain; F41.9 Anxiety disorder, unspecified; J45.909 Unspecified asthma, uncomplicated; F31.9 Bipolar disorder, unspecified; Z88.2 Allergy status to sulfonamides; Z88.5 Allergy status to narcotic agent; Z87.440 Personal history of urinary (tract) infections
CPT/HCPCS: 36415; 74176; 80053; 81001; 81025; 82150; 83690; 85025; 99284; 99285

== ENCOUNTER 2024-02-27 15:32 | Emergency (ER) | payer MEDICAID ==
[~2024-02-27] VITALS: Ht 167.6 cm; Wt 60.2 kg
[~2024-02-27 15:32] MED LIST changes: +DICY20TA17 PO; +ONDA-245 PO
[2024-02-27 15:57] VITALS: TEMP 99
[2024-02-27] MEDS: proCHLORperazine 10 MG/2 ml inj IV STA (18:34)
[2024-02-27] MEDS: diphenhydrAMINE 50 mg/ml inj IV STA (18:35)
[2024-02-27] MEDS: ketorolac trometh 30MG/ML vial 30 MG/ML VIAL IV STA (18:35)
[2024-02-27] MEDS: LORazepam 2 mg/ml vial IM ONE (18:35)
[2024-02-27] MEDS: normal saline 1000ml 1,000 ML IV ONE (19:49)
[2024-02-27 20:47] VITALS: BP 110/76; PULSE 87; RESP 14; O2SAT 97
== END 2024-02-27 20:49 | disposition home or self-care (01) ==
LOC: ER 15:32
DX: G43.909 Migraine, unspecified, not intractable, without status migrainosus (principal); J45.909 Unspecified asthma, uncomplicated; F41.9 Anxiety disorder, unspecified; F12.90 Cannabis use, unspecified, uncomplicated; Z87.440 Personal history of urinary (tract) infections; Z88.5 Allergy status to narcotic agent; Z88.2 Allergy status to sulfonamides
CPT/HCPCS: 93005; 96361; 96374; 96375; 99284; J0780; J1200; J7030; J1885

== ENCOUNTER 2024-06-25 22:24 | Emergency (ER) | payer MEDICAID ==
[~2024-06-25] VITALS: Ht 167.6 cm; Wt 70.0 kg
[2024-06-25 22:27] VITALS: TEMP 97.4
[2024-06-25 23:56] VITALS: BP 126/80; PULSE 79; RESP 15; O2SAT 98
--- NOTE | 2024-06-25 23:58 | Physician Documentation ---
History of Present Illness ~ Chief Complaint: Back Pain Stated Complaint: BACK PAIN Time Seen by MD: 23:56 Primary Medical Doctor: LILIANA CENTENO Patient presents to the emergency room with mid back pain ever since seeing the chiropractor 2-1/2 days ago where an adjustment was performed. Natacha's having no significant back pain prior to that visit. No history of back traumas/car accidents etc.. No bladder or bowel incontinence. No lower extremity numbness paresthesias or weakness. No history of intravenous drug use Medication Reconciliation Allergies: Coded Allergies: codeine (Verified Allergy, Mild, HIVES, 01/13/24) Sulfa (Sulfonamide Antibiotics) (Verified Allergy, Unknown, 01/13/24) prochlorperazine (Verified Allergy, Unknown, TACHYCARDIA AND RASH, 06/25/24) Scheduled Budesonide/Formoterol Fumarate (Symbicort 160-4.5 Mcg Inhaler), 2 PUFFS INH Q12H Cyclobenzaprine* (Cyclobenzaprine*), 1 TAB PO Q8H Dicyclomine HCl (Dicyclomine HCl), 1 TAB PO Q6H Ondansetron 8mg ODT (Ondansetron Odt), 1 TAB PO Q6H Scheduled PRN Albuterol Sulfate (Ventolin Hfa), 2 PUFFS INH Q4HPRN PRN for wheezing Lorazepam (Ativan), 1 TAB PO Q12H PRN PRN for anxiety Past Medical History Past Medical History: Asthma, UTI, Anxiety, Bipolar Past Surgical History: no surgical history Alcohol Use: None Drug Use: marijuana Lives In: Home Review of Systems ROS All review of systems negative except as per HPI Physical Exam Physical Exam Vital Signs: Temperature: 97.4, Source: Temporal, Heart Rate: 79, Respiratory Rate: 15, BP: 126/80, Pulse Oximetry: 98, Weight: 70.000 Oxygen Flow Rate: 0 Physical Exam General: Patient is awake, alert, oriented x4 in no acute distress and well appearing.~ Head: Normocephalic and atraumatic. Eyes: Conjunctival normal. EOMI. PERRL. ENT: Mucous membranes moist. Neck: Supple, trachea is midline. Chest: Clear to auscultation bilaterally without rales, rhonchi, or wheezes. There is no accessory muscle use or retractions. Cardiac: RRR without murmurs, gallops, or rubs. Extremities: Normal strength. Normal range of motion. No deformities or edema. Back: Tenderness to palpation to the lower thoracic/upper lumbar spine. No step-offs Progress Results/Orders Results/Orders Orders - DOUGLAS BRADY MD Lumbar Spine Limited (06/26/24 00:03) Thoracic Spine Litd (06/26/24 00:03) Completed Orders - DOUGLAS BRADY MD Lumbar Spine Limited (06/26/24 00:03) Thoracic Spine Litd (06/26/24 00:03) Acetaminophen 325mg Tablet (Tylenol Tabl (06/26/24 00:05) Medications Received in ER Medications (Trade) Dose Ordered Sig/[place] Route PRN Reason Start Time Stop Time Status Last Admin Dose Admin (Tylenol tablet) 975 mg ONCE ONCE PO 06/26/24 00:05 06/26/24 00:06 DC 06/26/24 00:42 975 MG Vital Signs 06/25/24 06/25/24 22:27 23:56 Temp 97.4 Pulse 86 79 Resp 16 15 B/P (MAP) 112/79 126/80 (95) Pulse Ox 98 98 O2 Flow Rate 0 0 Medical Decision Making Findings Patient presented to the emergency room with back pain after adjustment as per HPI. Differentials include but are not limited to fractures, dislocation, lumbago, muscle spasms, kidney stone therefore x-rays performed which was reassuring. Given history and he had not feel patient requires investigation into pyelonephritis or kidney stone. We will treat her for muscle strain. Ibuprofen and Tylenol discussed with the along with avoiding bedrest. Departure Disposition: 01 HOME / SELF CARE / HOMELESS Impression: Primary Impression: Lumbago Condition: Stable Discharge Instructions: Acute Back Pain, Adult Additional Instructions: Avoid bedrest. Ibuprofen 600 mg every 6 hours along with 1000 mg of Tylenol every 6 hours for pain. I will give you small amount of pain medication but keep in mind the 325 mg of Tylenol in this medication to keep below 1000 mg every 6 hours. I will also give you an antispasmodic to take prior to bedtime. Referrals: NO PRIMARY CARE PROVIDER (PCP) Prescriptions Cyclobenzaprine* (Cyclobenzaprine*) 10 Mg Tablet 1 TAB PO HS for muscle spasms, #15 TAB 0 Refills Prov: BRADY,DOUGLAS G MD 06/26/24 Hydrocodone Bit/Acetaminophen 5/325 MG ([place] 5/325 MG) 5 Mg/325 Mg Tablet 1 TAB PO Q4-6 hours PRN for pain, #15 TAB Prov: DOUGLAS BRADY MD 06/26/24 Acetaminophen (Tylenol Extra Strength) 500 Mg Tablet 2 TAB PO Q6H PRN PRN for pain or fever for 3 Days, #30 TAB Prov: DOUGLAS BRADY MD 06/26/24 Education Educated: Patient Educated regarding: diagnosis, treatment, need for follow up Signature Scribe Signature: No scribe Attestation: The note accurately reflects work and decisions made by me.Douglas Brady MD 06/26/24 01:15 DOUGLAS BRADY MD June 25, 2024 23:58
[2024-06-26] MEDS: acetaminophen 325mg tablet PO ONE (00:42)
--- NOTE | 2024-06-26 00:46 | RADIOLOGY REPORT ---
Clinical History pain Comparison None Technique: two-view thoracic spine Without Contrast ROSALINDA GRUBBS, [id number] FINDINGS: IMPRESSION: The examination reveals no significant bone, joint or soft tissue abnormality. There is no evidence of fracture or alignment abnormality in the thoracic spine, no lytic or blastic bone lesion, heart size normal. Consider follow-up CT or MRI as clinically indicated. This report was electronically signed by Teja Romo MD on 06/26/2024 12:43:34 AM.
--- NOTE | 2024-06-26 00:48 | RADIOLOGY REPORT ---
Clinical History pain Comparison None Technique: 2 view lumbar spine Without Contrast HUMERAROSALINDA, [id number] FINDINGS: IMPRESSION: The examination reveals no significant bone, joint or soft tissue abnormality. There is no evidence of fracture or alignment abnormality in the lumbar spine, no lytic or blastic rambo ne lesion. Soft tissue structures are unremarkable on this examination. Consider follow-up CT or MRI as clinically indicated. This report was electronically signed by Teja Romo MD on 06/26/2024 12:44:21 AM.
[2024-06-26] MEDS ORDERED: ACET-1025 PO (01:14)
[2024-06-26] MEDS ORDERED: HYDR-3965 PO (01:14)
[2024-06-26] MEDS ORDERED: CYCL-1 PO (01:14)
== END 2024-06-26 01:53 | disposition home or self-care (01) ==
LOC: ER 22:25
DX: M54.50 Low back pain, unspecified (principal); J45.909 Unspecified asthma, uncomplicated; F12.90 Cannabis use, unspecified, uncomplicated; F31.9 Bipolar disorder, unspecified; Z88.2 Allergy status to sulfonamides; Z88.5 Allergy status to narcotic agent; Z79.899 Other long term (current) drug therapy
CPT/HCPCS: 72070; 72100; 99284

== ENCOUNTER 2024-12-29 19:50 | Emergency (ER) | payer MEDICAID ==
[~2024-12-29] VITALS: Ht 167.6 cm; Wt 80.2 kg
--- NOTE | 2024-12-29 20:56 | Physician Documentation ---
History of Present Illness ~ Chief Complaint: Abscess Stated Complaint: POSS ABSCESS LOWER ABDOMEN Time Seen by MD: 20:11 Primary Medical Doctor: LILIANA CENTENO This is a 24-year-old female who presents with an area of pain and swelling to the her left external labia patient was seen at urgent care earlier today and prescribed antibiotics though she reports the pain worsened which caused her to present to the emergency department. Patient reports no fevers. Patient reports no other acute symptoms or concerns. Tetanus Within 5 Years: Yes Medication Reconciliation Allergies: Coded Allergies: codeine (Verified Allergy, Mild, HIVES, 01/13/24) Sulfa (Sulfonamide Antibiotics) (Verified Allergy, Unknown, 01/13/24) prochlorperazine (Verified Allergy, Unknown, TACHYCARDIA AND RASH, 06/25/24) Scheduled Budesonide/Formoterol Fumarate (Symbicort 160-4.5 Mcg Inhaler), 2 PUFFS INH Q12H Cyclobenzaprine* (Cyclobenzaprine*), 1 TAB PO Q8H Cyclobenzaprine* (Cyclobenzaprine*), 1 TAB PO HS Dicyclomine HCl (Dicyclomine HCl), 1 TAB PO Q6H Ondansetron 8mg ODT (Ondansetron Odt), 1 TAB PO Q6H Scheduled PRN Albuterol Sulfate (Ventolin Hfa), 2 PUFFS INH Q4HPRN PRN for wheezing Lorazepam (Ativan), 1 TAB PO Q12H PRN PRN for anxiety Past Medical History Past Medical History: Asthma, UTI, Anxiety, Bipolar Past Surgical History: no surgical history Alcohol Use: None Drug Use: marijuana Lives In: Home Review of Systems ROS As stated above in the HPI, otherwise all systems are reviewed and negative. Physical Exam Vital Signs: Temperature: 98.4, Heart Rate: 98, Respiratory Rate: 16, BP: 130/86, Pulse Oximetry: 98, Weight: 80.180 Oxygen Flow Rate: 0 Physical Exam VITALS: Reviewed and as above. GENERAL: Alert, nontoxic appearing, no apparent distress. 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 Progress Results/Orders Results/Orders Vital Signs 12/29/24 12/29/24 20:02 21:12 Temp 98.4 98.6 Pulse 98 96 Resp 16 18 B/P (MAP) 130/86 128/84 Pulse Ox 98 99 O2 Flow Rate 0 Medical Decision Making Additional information obtaine: N/A Findings This is a 24-year-old female presented with with a area of pain and swelling to the 2 o'clock position of her external labia, physical exam is consistent with a furuncle or ingrown hair with a possible abscess, area does appear to be uncomplicated and is reassuring patient reports no systemic symptoms such as fever or chills. Additionally reassuring patient reports no other acute symptoms or concerns including no urinary symptoms or unusual discharge. After careful discussion of risks and benefits and alternatives of incision and drainage and with shared decision-making patient has chosen a watchful waiting strategy with use of warm compresses and Sitz baths as an alternative to incision and drainage today, patient will return to the emergency department or her primary care provider/urgent care should symptoms worsen and she choose to have incision drainage performed. Careful return to care precautions, follow up instructions, and home care instructions discussed with the patient who verbalized understanding. Patient has declined pain medication in the emergency department and does not require additional antibiotics as she has been prescribed antibiotics by urgent care. Differential Dx:Considerations: Include: Abscess, Bacteremia, Cellulitis, Erysipelas, Hidrademitis suppurativa, Lymphangitis, Other (Bartholin abscess, Bartholin's cyst, chancre, STI) Departure Time of Disposition: 21:00 Disposition: 01 HOME / SELF CARE / HOMELESS Impression: Primary Impression: Furuncle of labia majora Condition: Improved Discharge Instructions: Abscess, Care After Additional Instructions: Continue to take the previously prescribed antibiotics. Use warm moist compresses on the area two to 3 times a day, you may additionally soak the area, use the warm moist compress/soak the area for at least 20 minutes at a time and then wash the area gently to promote drainage of material. Please follow up with your primary care provider in the next few days. Please return to the emergency department for any new or worsening concerning symptoms. Referrals: NO PRIMARY CARE PROVIDER (PCP) Education Educated: Patient Educated regarding: diagnosis, treatment, prognosis, need for follow up Signature Scribe Signature: No scribe Attestation: The note accurately reflects work and decisions made by me.JOEL Jones 12/29/24 22:54 YOGESH FITZGERALD Dec 29, 2024 20:55
[2024-12-29 21:12] VITALS: BP 128/84; PULSE 96; RESP 18; TEMP 98.6; O2SAT 99
== END 2024-12-29 21:13 | disposition home or self-care (01) ==
LOC: ER 19:51
DX: N76.4 Abscess of vulva (principal); J45.909 Unspecified asthma, uncomplicated; F31.9 Bipolar disorder, unspecified; F12.90 Cannabis use, unspecified, uncomplicated; F41.9 Anxiety disorder, unspecified; Z88.5 Allergy status to narcotic agent; Z88.2 Allergy status to sulfonamides; Z87.440 Personal history of urinary (tract) infections; Z79.899 Other long term (current) drug therapy
CPT/HCPCS: 99282; 99284